=== PATIENT | male | born 1990 ===

== ENCOUNTER 2018-09-07 23:36 | Emergency (ER) | payer SELFPAY ==
[2018-09-08] MEDS ORDERED: DIAZEPAM 5 MG TAB ONE
[2018-09-08] MEDS ORDERED: METOPROLOL SUCCINATE 50 MG ER TAB ONE
[2018-09-08] MEDS ORDERED: METOPROLOL SUCCINATE 50 MG ER TAB PO ONE (00:02)
[2018-09-08] MEDS ORDERED: DIAZEPAM 5 MG TAB PO ONE (00:03)
[2018-09-08 00:56] VITALS: RESP 20; TEMP 98.6
[2018-09-08] MEDS ORDERED: LORAZEPAM 2 MG/ML SOL IV ONE ×2 (00:56→02:15)
[2018-09-08] MEDS: SODIUM CHLORIDE 0.9% FLUSH 10 ML SOL IV PRN ×2 (00:56→02:15)
[2018-09-08] MEDS ORDERED: OLANZAPINE 2.5 MG TAB ONE (01:27)
[2018-09-08] MEDS ORDERED: OLANZAPINE 2.5 MG TAB PO SCH (01:30)
[2018-09-08 01:44] VITALS: BP 130/79; PULSE 106; O2SAT 96
[2018-09-08] MEDS ORDERED: HALOPERIDOL LACTATE 5 MG/ML SOL IM ONE ×2 (02:23→02:32)
[2018-09-08] MEDS ORDERED: HALOPERIDOL LACTATE 5 MG/ML SOL ONE (02:24)
== END 2018-09-08 02:39 | disposition other institution (70) | DRG 897 ==
LOC: ED 23:36 → SUPCPDRO 23:36 → ED 09-08 02:39
DX: F15.10 Other stimulant abuse, uncomplicated (principal)
CPT/HCPCS: 93005; 96372; 96374; 99283; 99285; J1630; J2060; A9270-GY